=== PATIENT | male | born 1985 | race Caucasian/White ===

== ENCOUNTER 2016-11-03 02:16 | Inpatient (IN) | payer OTHER ==
[~2016-11-03] VITALS: Ht 182.9 cm; Wt 92.0 kg
[~2016-11-03 02:16] MED LIST: SULF-154 PO; Z.0.NO CURRENT MEDS
[2016-11-03 02:20] VITALS: BP 116/67; PULSE 72; RESP 18; TEMP 98.9; O2SAT 97
[2016-11-03 02:25] VITALS: O2SAT 95
[2016-11-03] MEDS ORDERED: SODIUM CHLORIDE 0.9% FLUSH 5 ML FLUSH IVF PRN ×2 (02:30→03:30)
[2016-11-03] MEDS ORDERED: HYDROmorphone HCL PF 1 MG/ML VIAL IVS ONE (02:30)
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
[2016-11-03 02:54] VITALS: BP 113/58; PULSE 73; RESP 16; O2SAT 94
[2016-11-03] MEDS ORDERED: ENALAPRILAT 1.25 MG/ML VIAL IV PRN (03:30)
[2016-11-03] MEDS ORDERED: CHLORHEXIDINE GLUCONATE 2 % 1 PACK (2 CLOTHS) TOP PRN (03:30)
[2016-11-03] MEDS ORDERED: ONDANSETRON HCL 4 MG/2 ML VIAL IV PRN (03:30)
[2016-11-03] MEDS ORDERED: ACETAMINOPHEN/HYDROcodone 325 MG/5 MG TAB PO PRN (03:30)
[2016-11-03] MEDS ORDERED: MISCELLANEOUS NURSING INFORMATION XX SCH (03:30)
[2016-11-03] MEDS ORDERED: HYDROmorphone HCL PF 1 MG/ML VIAL IVP PRN (03:30)
[2016-11-03] MEDS ORDERED: MAGNESIUM HYDROXIDE SUSP 30 ML CUP PO PRN (03:30)
[2016-11-03] MEDS: SODIUM CHLOR 0.9% 1000 ML INJ 1,000 ML IV SCH ×2 (03:38→13:22)
[2016-11-03 03:55] VITALS: BP 112/55
[2016-11-03] MEDS ORDERED: CHLORHEXIDINE GLUCONATE 2 % 1 PACK (2 CLOTHS) TOP SCH (04:00)
[2016-11-03 04:21] VITALS: BP 132/64; PULSE 65; RESP 17; TEMP 97.6; O2SAT 96
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
[2016-11-03] MEDS ORDERED: LACTATED RINGER'S 1000 ML IV SCH (05:00)
[2016-11-03] MEDS ORDERED: SODIUM CHLORID 0.9% 500 ML IV SCH (05:00)
[2016-11-03] MEDS ORDERED: INSULIN HUMAN REGULAR 1,000 UNITS/10 ML VIAL SQ PRN (05:00)
[2016-11-03] MEDS ORDERED: PANTOPRAZOLE SODIUM 40 MG VIAL IVP SCH (06:00)
[2016-11-03 07:46] VITALS: BP 109/64; PULSE 69; RESP 18; TEMP 98.2; O2SAT 93
[2016-11-03] MEDS: ACETAMINOPHEN/HYDROcodone 325 MG/5 MG TAB PO PRN ×2 (07:54→14:09)
[2016-11-03 08:41] LABS: AUTOMATED NEUTROPHIL # 10.4 TH/MM3 (1.8-7.7); BASOPHIL % 0.3 % (0.0-2.0); EOSINOPHIL % 0.3 % (0.0-4.0); HEMO FLAGS DIFF FINAL; LYMPH % 6.7 % (9.0-44.0); LYMPHOCYTE # 0.8 TH/MM3 (1.0-4.8); MEAN CELL VOLUME 91.2 FL (80.0-100.0); MEAN CORPUSCULAR HEMOGLOBIN 31.3 PG (27.0-34.0); MEAN CORPUSCULAR HGB CONC 34.3 % (32.0-36.0); MONO % 7.6 % (0.0-8.0); NEUT % 85.1 % (16.0-70.0); PLATELET COUNT 275 TH/MM3 (150-450); RED BLOOD COUNT 4.38 MIL/MM3 (4.50-5.90); RED CELL DISTRIBUTION WIDTH 13.5 % (11.6-17.2); WHITE BLOOD COUNT 12.3 TH/MM3 (4.0-11.0)
[2016-11-03 09:00] LABS: ALKALINE PHOSPHATASE 75 U/L (45-117); ALT (GPT) 236 U/L (12-78); AMYLASE 85 U/L (25-115); ANION GAP 7 MEQ/L (5-15); AST (GOT) 212 U/L (15-37); BICARBONATE 25.8 MEQ/L (21.0-32.0); BLOOD UREA NITROGEN 13 MG/DL (7-18); CHLORIDE 106 MEQ/L (98-107); GLOMERULAR FILTRATION RATE 120 ML/MIN (>89); POTASSIUM 3.9 MEQ/L (3.5-5.1); SODIUM (NA) 139 MEQ/L (136-145); TOTAL BILIRUBIN ADULT 0.5 MG/DL (0.2-1.0)
[2016-11-03] MEDS ORDERED: BACITRACIN TOP OINT 15 GM TUBE TOP SCH (09:00)
[2016-11-03] MEDS ORDERED: DOCUSATE SODIUM 100 MG CAP PO SCH (09:00)
--- NOTE | 2016-11-03 11:07 | PD.ORT.PN ---
Subjective Subjective Remarks Left wrist and rib fractures Objective Vitals Vital Signs Date Time Temp Pulse Resp B/P Pulse Ox O2 Delivery O2 Flow Rate FiO2 11/03/16 07:46 98.2 69 18 109/64 93 11/03/16 04:21 97.6 65 17 132/64 96 11/03/16 03:55 69 14 112/55 94 11/03/16 02:57 16 11/03/16 02:54 73 16 113/58 94 Room Air 11/03/16 02:25 95 Room Air 11/03/16 02:25 72 20 95 Room Air 11/03/16 02:20 98.9 72 18 116/67 97 I/O 11/02/16 11/02/16 11/02/16 11/03/16 11/03/16 11/03/16 07:00 15:00 23:00 07:00 15:00 23:00 Intake Total 0 ml Output Total 0 ml Balance 0 ml Intake Oral 0 ml Output Urine Total 0 ml # Bowel Movements 0 Result Diagram: 11/03/1682111/03/16821 Objective Remarks full consult dictated Assessment & Plan Problem List: (1) Distal radius fracture, left Plan: Images were reviewed from outside hospital which revealed good bone alignment Recommend conservative care Continue current splint Follow up in office in 2 weeks Erich Rondon MD Nov 03, 2016 11:07
[2016-11-03] MEDS ORDERED: PERC5TAB12 PO (11:17)
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
== END 2016-11-03 15:27 | disposition home or self-care (01) | DRG 184 ==
LOC: NEPE 02:16 → NEDH 03:01 → N06B 04:35
PROVIDERS: ADMIT Surgery; ATTEND Surgery
DX: S22.42XA Multiple fractures of ribs, left side, initial encounter for closed fracture (principal); S52.572A Other intraarticular fracture of lower end of left radius, initial encounter for closed fracture; S36.112A Contusion of liver, initial encounter; F17.210 Nicotine dependence, cigarettes, uncomplicated; V86.59XA Driver of other special all-terrain or other off-road motor vehicle injured in nontraffic accident, initial encounter
CPT/HCPCS: 71010; 80053; 82150; 83690; 85025; 96374; C9113; J1170; J7030

== ENCOUNTER 2016-11-12 21:24 | Emergency (ER) | payer OTHER ==
[~2016-11-12] VITALS: Ht 182.9 cm; Wt 85.0 kg
[~2016-11-12 21:24] MED LIST changes: +PERC5TAB12 PO; -SULF-154 PO; -Z.0.NO CURRENT MEDS
[2016-11-12 21:26] VITALS: BP 134/78; PULSE 76; RESP 18; TEMP 98.1; O2SAT 97
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
[2016-11-13] MEDS ORDERED: CYCL1TAB29 PO ×2 (00:13→00:14)
[2016-11-13] MEDS ORDERED: oxyCODONE/ACETAMINOPHEN 5 MG/325 MG TAB PO ONE (00:15)
[2016-11-13] MEDS ORDERED: CYCLOBENZAPRINE HCL 10 MG TAB PO ONE (00:15)
--- NOTE | 2016-11-13 01:31 | RADRPT ---
EXAM DATE/TIME: 11/12/2016 23:51 [facility] COMPARISON: No previous studies available for comparison. INDICATIONS : Left lateral rib pain after falling x 3days MEDICAL HISTORY : None. SURGICAL HISTORY : None. ENCOUNTER: Initial ACUITY: 3 days PAIN SCORE: 7/10 LOCATION: Left chest FINDINGS: Multiple views of the left ribs were performed. There are nondisplaced fractures involving left sixth and seventh ribs laterally. No pneumothorax. No pleural effusions. The rest of the bony structures a re grossly intact. CONCLUSION: Nondisplaced fractures of the left sixth and seventh left ribs Quincy Pacheco MD on November 13, 2016 at 1:28 Board Certified Radiologist. This report was verified electronically.
== END 2016-11-13 01:55 | disposition home or self-care (01) ==
LOC: NEPB 21:24
DX: S22.42XA Multiple fractures of ribs, left side, initial encounter for closed fracture (principal); F17.210 Nicotine dependence, cigarettes, uncomplicated; F12.90 Cannabis use, unspecified, uncomplicated; V86.99XA Unspecified occupant of other special all-terrain or other off-road motor vehicle injured in nontraffic accident, initial encounter
CPT/HCPCS: 71101; 99283